=== PATIENT | male | born 1975 | race Caucasian/White ===

== ENCOUNTER 2019-01-25 10:11 | Emergency (ER) | payer BC ==
--- NOTE | 2019-01-25 10:22 | ERPHSYRPT ---
- History of Present Illness Time Seen by Provider: 01/25/19 10:21 Source: patient Exam Limitations: no limitations Physician History: 43 y/o white male presents with sore throat, right earache and chills for 1 to 2 days. he thinks he may have the flu. denies n/v/d. denies cough, denies abd pain, denies neck pain. Timing/Duration: day(s) (1 to 2 days) Severity: mild Associated Symptoms: fever, No nausea, No vomiting, No abdominal pain, No heartburn, No headaches Allergies/Adverse Reactions: No Known Drug Allergies Allergy (Unverified 01/25/19 10:36) Home Medications: Aspirin 81 gm Chew [Baby Aspirin 81 mg Chew] 81 mg PO DAILY 01/25/19 [ History] Empagliflozin [Jardiance] 10 mg PO DAILY 01/25/19 [History] Gemfibrozil 600 mg [Lopid 600 mg] 600 mg PO BID 01/25/19 [History] Glipizide 5 mg [Glucotrol 5 MG] 5 mg PO DAILY 01/25/19 [History] Lisinopril 10 mg [Zestril 10 MG] 10 mg PO DAILY 01/25/19 [History] Metformin HCl 500 mg [Glucophage 500 MG] 500 mg PO BIDWM 01/25/19 [History ] Semaglutide [Ozempic] 0.25 mg SQ WEEKLY 01/25/19 [History] - Review of Systems Constitutional: Fever, Chills Eyes: No Symptoms Ears, Nose, & Throat: Ear Pain (right), Throat Pain Respiratory: No Symptoms Cardiac: No Symptoms Abdominal/Gastrointestinal: No Symptoms Genitourinary Symptoms: No Symptoms Musculoskeletal: No Symptoms Skin: No Symptoms Neurological: No Symptoms Psychological: No Symptoms Endocrine: No Symptoms Hematologic/Lymphatic: No Symptoms Immunological/Allergic: No Symptoms All Other Systems: Reviewed and Negative - Past Medical History Pertinent Past Medical History: Yes Neurological History: No Pertinent History ENT History: No Pertinent History Cardiac History: No Pertinent History Respiratory History: No Pertinent History Endocrine Medical History: No Pertinent History Musculoskeletal History: No Pertinent History GI Medical History: No Pertinent History History: No Pertinent History Psycho-Social History: No Pertinent History Male Reproductive Disorders: No Pertinent History - Past Surgical History Neuro Surgical History: No Pertinent History Cardiac: No Pertinent History Respiratory: No Pertinent History Gastrointestinal: No Pertinent History Genitourinary: No Pertinent History Musculoskeletal: No Pertinent History Male Surgical History: No Pertinent History - Nursing Vital Signs Nursing Vital Signs: Initial Vital Signs Temperature 99.9 F 01/25/19 10:19 Pulse Rate 109 H 01/25/19 10:19 Respiratory Rate 20 01/25/19 10:19 Blood Pressure 133/83 01/25/19 10:19 O2 Sat by Pulse Oximetry 100 01/25/19 10:19 Pain Scale Pain Intensity 0 - Physical Exam General Appearance: mild distress, alert, anxiety Eye Exam: PERRL/EOMI Ears, Nose, Throat Exam: moist mucous membranes, pharyngeal erythema Neck Exam: normal inspection, non-tender, supple, full range of motion Respiratory Exam: normal breath sounds, lungs clear, airway intact, No chest tenderness, No respiratory distress, No accessory muscle use, No rhonchi, No wheezing, No stridor Cardiovascular Exam: tachycardia Gastrointestinal/Abdomen Exam: soft, normal bowel sounds, No tenderness, No guarding Rectal Exam: not done Back Exam: normal inspection, normal range of motion, No CVA tenderness, No vertebral tenderness Extremity Exam: normal inspection, normal range of motion, pelvis stable Neurologic Exam: alert, oriented x 3, cooperative, 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 Skin Exam: normal color, warm, dry Lymphatic Exam: No adenopathy SpO2 Interpretation: normal O2 Delivery: Room Air - Course Nursing assessment & vital signs reviewed: Yes Ordered Tests: Medication Summary Generic Name Dose Route Start Last Admin Trade Name Freq PRN Reason Stop Dose Admin Methylprednisolone Sodium Succinate 125 mg 01/25/19 11:26 Solu-Medrol 125 Mg IM 01/25/19 11:27 STAT ONE Discontinued Medications Generic Name Dose Route Start Last Admin Trade Name Freq PRN Reason Stop Dose Admin Ceftriaxone Sodium 1,000 mg 01/25/19 11:25 Rocephin 1000 Mg Inj IM 01/25/19 11:26 STAT ONE Lab/Rad Data: Laboratory Results 01/25/19 Range/Units 10:35 Influenza Type A Ag NEGATIVE (NEGATIVE) Influenza Type B Ag NEGATIVE (NEGATIVE) RSV (PCR) NEGATIVE (Negative) Group A Strep Antibody POSITIVE (NEGATIVE) - Progress Progress: unchanged, pain not gone completely, re-examined Counseled pt/family regarding: lab results, diagnosis, need for follow-up - Departure Time of Disposition: 11:27 Departure Disposition: Home Clinical Impression: Strep pharyngitis Condition: Stable Critical Care Time: No Referrals: SARAH ESTRADA PA [Primary Care Provider] - Additional Instructions: drink plenty fluids. add ibuprofen 600mg orally with food 3 times daily for fever and pain. follow up with primary doctor for further management Prescriptions: Amoxicillin 500 mg Cap [Amoxil 500 mg] 500 mg PO TID #30 capsule Hydrocodone Bit/Acetaminophen [Hydrocodone-Acetaminophen Soln] 10 ml PO Q6H # 120 ml
[2019-01-25 11:22] LABS: RESPIRATORY SYNCTIAL VIRUS NEGATIVE (Negative)
[2019-01-25 11:23] LABS: Group A Strep POSITIVE (NEGATIVE); INFLUENZA A NEGATIVE (NEGATIVE); INFLUENZA B NEGATIVE (NEGATIVE)
[2019-01-25] MEDS ORDERED: Rocephin 1000 MG INJ IM ONE (11:25)
[2019-01-25] MEDS ORDERED: solu-MEDROL 125 MG IM ONE (11:26)
[2019-01-25] MEDS ORDERED: solu-MEDROL 125 MG ONE (11:34)
[2019-01-25] MEDS ORDERED: Rocephin 1000 MG INJ ONE (11:34)
[2019-01-25 12:14] VITALS: BP 129/81; PULSE 82; O2SAT 99
== END 2019-01-25 12:12 | disposition home or self-care (01) ==
LOC: ED 10:11
DX: J02.0 Streptococcal pharyngitis (principal); Z79.899 Other long term (current) drug therapy
CPT/HCPCS: 87631; 87651; 96372; 99284; J0696; J2930